=== PATIENT | male | born 1955 | race Caucasian/White ===

== ENCOUNTER 2021-02-10 13:32 | Outpatient (CLI) | payer MEDICARE, SELFPAY ==
--- NOTE | ~2021-02-10 | US_ITS ---
EXAMINATION: US carotid duplex BI DATE: 02/10/2021 14:08 INDICATION: Skin paresthesias TECHNIQUE: Grayscale, color Doppler, and pulsed Doppler images of the cervical carotid arteries were obtained. The degree of vessel stenosis is placed in one of the following categories: normal, <50%, 5 0-69%, >=70% but less than near-occlusion, near-occlusion, or total occlusion. Note that percent sten osis relative to normal distal artery lumen diameter is indirectly measured from velocity measurement s as described by Gennaro, et al. Radiology 2003; 229:340-346. Notes: Normal: Peak systolic velocity <125 centimeters/sec and no plaque <50%. Peak systolic velocity <125 ( EDV <40; ICA/CCA PSV ratio <2.0; used these factors only a tandem lesions or low cardiac output or co ntralateral disease) 50-69 %: PSV 125-230 (EDV 40-100; ratio 2-4) >= 70% but less than near occlusion: PSV greater than 230 (EDV > 100; ratio> 4.0) Near Occlusion: PSV that is variable; markedly narrowed lumen Occlusion: Absent flow on color/spectral Doppler and no lumen on arriola scale. COMPARISON: None. FINDINGS: RIGHT: The right common carotid artery (CCA) peak systolic velocity (PSV) is 76 cm/s. The right internal car otid artery (ICA) PSV is 48 cm/s. The right ICA end-diastolic velocity (EDV) is 22 cm/s. The right IC A/CCA PSV ratio is 0.8. The external carotid artery (ECA) PSV is 67 cm/s. There is antegrade flow in the right vertebral artery. LEFT: The left CCA PSV is 76 cm/s. The left ICA PSV is 63 cm/s. The left ICA EDV is 33 cm/s. The left ICA/C CA PSV ratio is 0.8. The ECA PSV is 54 cm/s. There is antegrade flow in the left vertebral artery. IMPRESSION: 1. Less than 50% stenosis in the right internal carotid artery by sonographic criteria. 2. Less than 50% stenosis in the left internal carotid artery by sonographic criteria. Reviewed, dictated and finalized at location B. IMPRESSION: 1. Less than 50% stenosis in the right internal carotid artery by sonographic c salina. 2. Less than 50% stenosis in the left internal carotid artery by sonographic ronn araujo.
--- NOTE | ~2021-02-10 | XR_ITS ---
EXAMINATION:XR cervical spine 4-5V DATE: 02/10/2021 14:14 INDICATION: Paresthesias at the right side of the face and neck and at the left arm TECHNIQUE: AP, lateral, lateral swimmers and odontoid views of the cervical spine are provided. COMPARISON: None FINDINGS: Odontoid is intact. Normal atlantoaxial interval. Straightening of the normal cervical lordosis. Candida tebral body heights are normal. Mild disc height loss at C5-C6 and C6-C7. Multilevel lower cervical p redominant moderate bilateral uncovertebral osteoarthritis. Additional multilevel mild to moderate bi lateral cervical facet osteoarthritis. Prevertebral soft tissues are normal. Visualized apices of the lungs are clear. IMPRESSION: 1. Mild to moderate cervical spondylosis. Reviewed, dictated and finalized at location A.
== END 2021-02-10 13:33 | disposition home or self-care (01) ==
PROVIDERS: PCP Family Medicine; Visit Provider Family Medicine
DX: R20.2 Paresthesia of skin (principal); M47.892 Other spondylosis, cervical region
CPT/HCPCS: 72050; 93880

== ENCOUNTER 2021-05-18 01:56 | Day surgery (SDC) | payer MEDICARE, SELFPAY ==
[2021-05-06 13:37] VITALS: BMI 31.4
[2021-05-18 07:00] VITALS: BP 127/94; PULSE 64; RESP 20; TEMP 36.5; O2SAT 97
--- NOTE | 2021-05-18 07:13 | WPDANESEPPF ---
Anes - Initial Pre Proc Eval Procedure: Operation Date: 05/18/21 08:00 Proposed Procedures p Screening Colonoscopy - Curry Fuentes MD Date/Time: 05/18/21 07:13 Surgeon: Curry Fuentes MD Pre Op Diagnosis: hx of colon polyps Patient Data Age: 66 Gender: M Height: 1.8 m Weight: 98.8 kg Last Vital Signs Temp 36.5 C 05/18/21 07:00 Pulse 64 05/18/21 07:00 Resp 20 05/18/21 07:00 BP 127/94 H 05/18/21 07:00 Pulse Ox 97 05/18/21 07:00 Allergies Allergy/AdvReac Type Severity Reaction Status Date / Time No Known Allergies Allergy Verified 05/18/21 06:58 Home Medications Medication Instructions Recorded Confirmed Type multivitamin,aj-otrr-vkvgpvev 1 tablet PO DAILY 09/02/19 05/06/21 History naproxen 500 mg tablet 500 mg PO BID PRN 02/25/20 05/06/21 History sildenafil (pulm.hypertension) 20 See Rx Instructions PO DAILY PRN 06/24/20 05/06/21 Rx mg tablet #90 tablet levothyroxine 150 mcg tablet 150 mcg PO DAILY #90 tablet 11/08/20 05/06/21 Rx lisinopril 10 mg tablet 10 mg PO DAILY #90 tablet 11/08/20 05/06/21 Rx simvastatin 40 mg tablet 40 mg PO DAILY #90 tablet 11/08/20 05/06/21 Rx cyanocobalamin (vitamin B-12) 500 mcg PO DAILY 05/06/21 05/06/21 History [Vitamin B-12] loratadine 10 mg PO DAILY 05/06/21 05/06/21 History Patient hx anesthesia problems: none Family hx anesthesia problems: none PMFSH Past Medical History Medical History (Updated 01/26/21 @ 08:42 by Andrés Petit MD) Abnormal fasting glucose BMI 31.0-31.9,adult Chronic low back pain with left-sided sciatica Dupuytren's contracture of both hands Facial paresthesia Trigger finger of right hand Family History Family History (System 10/03/19 @ 10:43 by Meeta Coon) Mother Carcinoma of colon Patient's mother is , Onset Age: 84 Father Patient's father is , Onset Age: 93 Family history of pancreatic cancer Other Diabetes mellitus Family history of allergic disorder Social History Social History Smoking packs per day: 2 Smoking cigarettes per day: 40.0 Years smoked: 20 Smoking pack-years: 40.00 Smoking status: Former smoker Tobacco type: cigarettes Alcohol intake: current Drinks per week: 18 Alcohol use details: BEER/WINE Substance use: never Substance use type: does not use Living arrangements: with family Spiritual care concerns: No Anes - Eval Final PreProcedure Day of Procedure 05/18/21 07:13 Patient weight: obese Heart: regular rate and rhythm Lungs: clear to auscultation and normal air movement Airway: Mallampati scale class II Neurological: alert and oriented Last oral intake: >/= 8 hours ASA classification: III Emergent: no Anesthetic plan: proceed Anesthesia type and monitoring: general GIVS Informed Consent: The patient's anesthetic plan and its attendant risks and benefits were discussed with the patient/family/POA. Questions were solicited and answers provided to the satisfaction of the patient/family/POA.
[2021-05-18] MEDS: LACTATED RINGERS 1,000 ML 150 ML IV CONT (07:23)
--- NOTE | 2021-05-18 07:25 | WPDGICN ---
Assessment and Plan Assessment and plan (1) Family history of colon cancer in mother: Code(s): Z80.0 - Family history of malignant neoplasm of digestive organs Status: Acute Assessment and Plan: Patient has a family history of colon cancer in his mother. For this reason colonoscopy will be performed at this time and should be considered at 5 year intervals in the future. GI Consult Note Consult date/time: 05/18/21 07:25 HPI: Alan Kline is a 66 year old male Presents for colonoscopy. Patient prep family history is significant that his mother had colon cancer. Patient states that his current weight appetite bowel movements are normal. He denies abdominal pain. He has had no bleeding. Last colonoscopy 2010 was unremarkable. Review of Systems Review of Systems: All systems reviewed & are unremarkable except as noted in HPI and below PMFSH Past Medical History Medical History (Updated 05/18/21 @ 07:27 by Curry Fuentes MD) Abnormal fasting glucose BMI 31.0-31.9,adult Chronic low back pain with left-sided sciatica Dupuytren's contracture of both hands Facial paresthesia Trigger finger of right hand Family History Family History (System 10/03/19 @ 10:43 by Meeta Coon) Mother Carcinoma of colon Patient's mother is , Onset Age: 84 Father Patient's father is , Onset Age: 93 Family history of pancreatic cancer Other Diabetes mellitus Family history of allergic disorder Social History Social History Smoking packs per day: 2 Smoking cigarettes per day: 40.0 Years smoked: 20 Smoking pack-years: 40.00 Smoking status: Former smoker Tobacco type: cigarettes Alcohol intake: current Drinks per week: 18 Alcohol use details: BEER/WINE Substance use: never Substance use type: does not use Living arrangements: with family Spiritual care concerns: No Meds Home Medications and Allergies Home Medications Medication Instructions Recorded Confirmed Type multivitamin,ym-lfyo-vawmltzl 1 tablet PO DAILY 09/02/19 05/06/21 History naproxen 500 mg tablet 500 mg PO BID PRN 02/25/20 05/06/21 History sildenafil (pulm.hypertension) 20 See Rx Instructions PO DAILY PRN 06/24/20 05/06/21 Rx mg tablet #90 tablet levothyroxine 150 mcg tablet 150 mcg PO DAILY #90 tablet 11/08/20 05/06/21 Rx lisinopril 10 mg tablet 10 mg PO DAILY #90 tablet 11/08/20 05/06/21 Rx simvastatin 40 mg tablet 40 mg PO DAILY #90 tablet 11/08/20 05/06/21 Rx cyanocobalamin (vitamin B-12) 500 mcg PO DAILY 05/06/21 05/06/21 History [Vitamin B-12] loratadine 10 mg PO DAILY 05/06/21 05/06/21 History Allergies Allergy/AdvReac Type Severity Reaction Status Date / Time No Known Allergies Allergy Verified 05/18/21 06:58 Vital Signs Vital Signs - 24 hr 05/18/21 07:00 Temperature 97.7 F Pulse Rate 64 Respiratory Rate 20 Blood Pressure 127/94 H Pulse Oximetry 97 Exam Narrative: Physical exam reveals patient be alert. Vital signs stable. HEENT exam is unremarkable. Patient is anicteric. Lungs are clear to auscultation and percussion. Heart is without murmur or extra sounds. Abdominal exam bowel sounds are present soft nontender with no organomegaly. Digital external rectal exam is normal.
[2021-05-18] MEDS: SIMETHICONE ORAL SUSPENSION 20 MG/0.3 ML 30 ML BOTTLE 0.6 ML IRRIGATION (08:13)
[2021-05-18 08:24] VITALS: BP 101/79; PULSE 73; RESP 31; O2SAT 93
[2021-05-18 08:34] VITALS: BP 120/85; PULSE 71; RESP 17; O2SAT 96
[2021-05-18 08:44] VITALS: BP 117/85; PULSE 68; RESP 17; O2SAT 98
== END 2021-05-18 08:45 | disposition home or self-care (01) ==
PROVIDERS: PCP Family Medicine; Visit Provider Internal Medicine Gastroenterology
PROC: 0DJD8ZZ Inspection of Lower Intestinal Tract, Via Natural or Artificial Opening Endoscopic (ICD-10-PCS; CPT 45378; principal; 2021-05-18 08:00)
DX: Z12.11 Encounter for screening for malignant neoplasm of colon (principal); D12.5 Benign neoplasm of sigmoid colon; K57.30 Diverticulosis of large intestine without perforation or abscess without bleeding; K64.8 Other hemorrhoids; Z80.0 Family history of malignant neoplasm of digestive organs; Z87.891 Personal history of nicotine dependence; E66.9 Obesity, unspecified; Z68.30 Body mass index [BMI] 30.0-30.9, adult
CPT/HCPCS: 45385; 88305; J2704; J7120

== ENCOUNTER → 2022-07-20 12:10 | Outpatient (CLI) | payer MEDICARE, SELFPAY ==
--- NOTE | ~2022-07-20 | XR_ITS ---
EXAMINATION: XR hip BI 2V w AP pelvis DATE: 07/20/2022 12:26 INDICATION: Hip pain TECHNIQUE: AP view the pelvis and two views of each hip were obtained. COMPARISON: None. FINDINGS: Bone alignment is normal. There is mild osteoarthritis of the hips. There is no fracture. T he soft tissues are unremarkable. There is severe spondylosis of the visualized lumbar spine. IMPRESSION: 1. Mild osteoarthritis of the hips. Reviewed, dictated and finalized at location B.
== END ==
PROVIDERS: PCP Family Medicine; Visit Provider Family Medicine
DX: M16.0 Bilateral primary osteoarthritis of hip (principal); M47.816 Spondylosis without myelopathy or radiculopathy, lumbar region
CPT/HCPCS: 73521

== ENCOUNTER 2023-03-14 01:36 | Day surgery (SDC) | payer MEDICARE, SELFPAY ==
--- NOTE | 2023-03-07 08:41 | PC.NURSE ---
Report to the Outpatient Waiting Room, entrance under the green pavilion located off [facility], at time __0600 on date ___03/14/23____. Planned Procedure Time: ___729 . Time changes happen often and if your time is changed the preop area will call you the afternoon before. - You and your visitor will be asked to self-screen and do not enter if you have any COVID symptoms. - A mask is optional within the hospital at this time. Patients may have clear liquids (water, carbonated beverages, clear teas, apple juice) until 3 hours prior to surgery (0430 AM) with a maximum of 20 ounces. - No food from midnight until time of surgery - Infants may have breast milk until 4 hours before surgery, formula 6 hours prior to surgery. - Children will be allowed to drink immediately following surgery. If applicable, please bring a bottle or sippy cup to assist with drinking. Juice, water, soda, and popsicles are readily available. For infants on formula, please bring formula the day of surgery. Pacifiers are allowed. Take the following medications with a SIP of water the morning of surgery: LEVOTHYROXINE DO NOT STOP ANY OF YOUR OTHER PRESCRIPTION MEDICATIONS PRIOR TO SURGERY ?EXCEPT THE FOLLOWING Medications to discontinue per ANESTHESIA ____MULTIVITAMIN 3 DAYS PRIOR TO SURGERY Date to take last dose 03/10/23 Please no make-up, nail uzbek, hairspray, perfume, deodorant, or body powder the day of surgery. No jewelry (including any body piercings) or valuables the day of surgery, leave them at home. Please take a shower or bath the night before, or the morning of, surgery with an antibacterial soap. Wear comfortable, loose fitting clothing. Children are encouraged to wear pajamas. - Jewelry must be removed prior to entering the operating room. Rings and piercings that are not removed may be cut off. - The hospital will not accept responsibility for valuables. - Please leave all valuables, including medications, at home the day of surgery. If you are going home after surgery, a licensed stage driver must drive you home. - NO public transportation without another adult if you receive anesthesia. - We recommend that an adult stay with you for 24 hours following discharge. - We also recommend that you do not drive, make important decision, drink alcoholic beverages, or take any drugs that were not prescribed by your health care provider for at least 24 hours after your discharge time. For Pediatric surgeries, we recommend two adults accompany the child home. Follow any additional instructions given to you from your surgeon. If you or anyone in your household have experienced Covid symptoms in the past week, please notify your surgeon or the nurse liaison at the phone number below for possible testing. Telephone instructions given to ____PATIENT and asked if any additional questions and then verbalized understanding. Patient advised to call surgeon office or pre surgery nurse liaison [phone] if any additional questions.
[2023-03-14] MEDS: LACTATED RINGERS 1,000 ML 30 ML IV CONT (06:30)
[2023-03-14 06:32] VITALS: BP 143/78; PULSE 61; RESP 16; TEMP 35.7; O2SAT 92
--- NOTE | 2023-03-14 06:39 | WPDANESEPPF ---
Anes - Initial Pre Proc Eval Procedure: Operation Date: 03/14/23 07:30 Proposed Procedures p Right Open Carpal Tunnel Release, Right Ulnar Neuroplasty at Elbow - Jose Bhatia MD Date/Time: 03/14/23 06:39 Surgeon: Jose Bhatia MD Pre Op Diagnosis: right carpal tunne syndrome,ulnar neuro at elbow Patient Data Age: 67 Gender: M Height: 1.8 m Weight: 98.2 kg Last Vital Signs Temp 35.7 C L 03/14/23 06:32 Pulse 61 03/14/23 06:32 Resp 16 03/14/23 06:32 BP 143/78 H 03/14/23 06:32 Pulse Ox 92 03/14/23 06:32 O2 Del Method Room Air 03/14/23 06:32 Allergies Allergy/AdvReac Type Severity Reaction Status Date / Time No Known Allergies Allergy Verified 03/14/23 06:13 Home Medications Medication Instructions Recorded Confirmed Type multivitamin,wa-qqfn-shnfrkfk 1 tablet PO DAILY 09/02/19 03/14/23 History (Complete Multivitamin tablet) cyanocobalamin (vitamin B-12) 500 500 mcg PO DAILY 05/06/21 03/14/23 History mcg tablet (Vitamin B-12) famotidine 20 mg tablet 20 mg PO BID PRN Acid Reflux 01/05/22 03/07/23 History celecoxib 200 mg capsule (Celebrex) 200 mg PO BID PRN pain #60 caps 01/25/23 03/14/23 Rx loratadine 10 mg tablet 10 mg PO DAILY PRN allergic 01/25/23 03/07/23 History symptoms levothyroxine 150 mcg tablet 150 mcg PO DAILY #90 tabs 01/30/23 03/14/23 Rx lisinopril 10 mg tablet 10 mg PO DAILY #90 tabs 01/30/23 03/14/23 Rx simvastatin 40 mg tablet 40 mg PO DAILY #90 tabs 01/30/23 03/14/23 Rx sildenafil (pulm.hypertension) 20 See Rx Instructions PO DAILY PRN 03/07/23 03/07/23 History mg tablet Sexual Activity Patient hx anesthesia problems: none Family hx anesthesia problems: none Results Review: All pre-operative results and documents have been reviewed as part of the pre-operative evaluation. [facility] Past Medical History Medical History Abnormal fasting glucose Fasting glucose 101 with hemoglobin A1c 5.4 on 07/12/2022. Acute bronchitis (08/16/22) COVID negative, influenza a and B negative Acute non-recurrent maxillary sinusitis BMI 29.0-29.9,adult BMI 30.0-30.9,adult BMI 31.0-31.9,adult Carpal tunnel syndrome, bilateral Bilateral carpal tunnel syndrome on EMG and nerve conduction study 11/13/2022 moderate on the right and mild on the left. Chronic low back pain with left-sided sciatica Chronic thoracic back pain Dupuytren's contracture of both hands Encounter for prostate cancer screening Facial paresthesia Gastro-esophageal reflux disease without esophagitis Hip pain, bilateral X-ray of the hips and pelvis on 07/20/2022 reveals mild osteoarthritis of the hips with severe lumbar spondylosis. Impacted cerumen of both ears Obesity (BMI 30.0-34.9) Overweight (BMI 25.0-29.9) Polyp of colon (05/18/21) 2 benign-appearing polyps in the sigmoid colon with Dr. Fuentes on 05/18/2021 with recheck in 5 years. Tubular adenoma Right otitis media with effusion Trigger finger of right hand Ulnar neuropathy at elbow of right upper extremity Cubital tunnel syndrome on EMG and nerve conduction study on the right on 11/13/2022. Family History Family History Mother Carcinoma of colon Patient's mother is , Onset Age: 84 Father Patient's father is , Onset Age: 93 Family history of pancreatic cancer Other Diabetes mellitus Family history of allergic disorder Social History Social History Smoking packs per day: 2 Smoking cigarettes per day: 40.0 Years smoked: 20 Smoking pack-years: 40.00 Smoking status: Former smoker Tobacco type: cigarettes Second hand tobacco smoke exposure: No Smoking end date: 10/15/83 Alcohol intake: current Drinks per week: 18 Alcohol use details: BEER/WINE Substance use: never Substance use type: does not use Lack of Transportation: No
--- NOTE | 2023-03-14 07:14 | WPDHPUPDATE1 ---
History and Physical Update Update Date/Time: 03/14/23 07:14 History and Physical has been reviewed, including an updated exam of the patient. There are NO changes in the patient's condition. Risks, benefits, and alternatives have been discussed and questions answered. Patient agrees to proceed with procedure.
[2023-03-14] MEDS: LIDO 1%/EPINEPHRINE 1:100,000 50 ML VIAL 8 ML INFILTRATE (07:26)
[2023-03-14] MEDS: BACITRACIN OINTMENT 15 GM TUBE 1 APPLIC TOPICAL (07:52)
[2023-03-14 08:45] VITALS: BP 102/56; PULSE 58; RESP 16; O2SAT 95
--- NOTE | 2023-03-14 09:14 | W.PM.PROC2 ---
Procedure Note - Detailed Date of Procedure 03/14/23 Pre-op Diagnosis right carpal tunne syndrome,ulnar neuro at elbow Post-op Diagnosis Same Procedure Performed Right carpal tunnel release and right ulnar neuroplasty with anterior subcutaneous transposition Surgeon Jose Bhatia MD Anesthesia MAC Description of Procedure The 2 sites were marked on the patient while waiting in the holding area with his consent. Patient was transferred to the operating room where he was placed supine on the operating table. A time-out was held and confirmed. He was given IV sedation. The extremity was prepped and draped in usual fashion. A pneumatic tourniquet was applied to his arm. The surgical sites were marked and locally infiltrated with 1% lidocaine with epinephrine. Surgery was begun at the right palm where the incision was made as marked after inflating the tourniquet to 250 mmHg. Blunt dissection was performed through the subcutaneous tissue to the palmar aponeurosis. This and the transverse retinaculum were incised with a 15. Blade. Under 3 point retraction the ligament was divided distally and then proximally to completely release it. No unusual anatomy was noted and the wound was closed with interrupted 4-0 nylon suture. The elbow was flexed and supported on folded towels. The incision was made over the course of the ulnar nerve. Skin flaps were elevated sufficiently to identify the nerve proximally and this was followed distally. The nerve was subluxated over the medial epicondyle. The Naik ligament appeared to be attenuated but still holding the nerve in the court ordered position with the elbow in flexion. This was lysed. The nerve floated freely up onto the medial epicondyle. The decision was made to transpose it. The nerve was mobilized sufficiently to transpose without kinking. The skin flap was elevated. A fascial flap was designed to lie over the nerve keeping it positioned in its new location. The flap repairs were done with 3-0 Monocryl suture. The skin was closed with interrupted intradermal 3-0 Monocryl sutures at cross deleon mejía. The skin was then closed with a running intradermal 3-0 Monocryl suture.. Both wounds were closed in usual fashion with Xeroform gauze 4 x 4 gauze Kerlix roll and Valentín wrap. The tourniquet was released at approximately 53 minutes and the patient was discharged from the operating room stable condition. Is being discharged home with a prescription for hydrocodone 5/325 6. Estimated Blood Loss 5 Tourniquet Time 53 Drains No Packing No Pathology None sent Complications No immediate complications Condition Stable Disposition Same day
[2023-03-14 09:15] VITALS: BP 110/70; PULSE 53; RESP 20
[2023-03-14 09:35] VITALS: BP 122/80; PULSE 51; RESP 20
== END 2023-03-14 09:39 | disposition home or self-care (01) ==
PROVIDERS: PCP Family Medicine; Visit Provider Plastic Surgery
PROC: (CPT 64721; principal; 2023-03-14 07:30)
DX: G56.01 Carpal tunnel syndrome, right upper limb (principal); G56.21 Lesion of ulnar nerve, right upper limb; K21.9 Gastro-esophageal reflux disease without esophagitis; Z87.891 Personal history of nicotine dependence; E66.9 Obesity, unspecified; Z68.30 Body mass index [BMI] 30.0-30.9, adult
CPT/HCPCS: 64721; 64718; A9270; J2250; J2405; J2704; J3010; J7120

== ENCOUNTER 2025-02-10 09:25 | Emergency (ER) | payer MEDICARE, SELFPAY ==
--- NOTE | ~2025-02-10 | XR_ITS ---
[id number] Ordering provider: Nate Keith APRN History: . cervical radiculopathy/right side/no trauma/cancer history . Comparison: None. FINDINGS: VERTEBRAL BODIES: Normal height and alignment. No visible fracture or subluxation. The dens is intact . Postoperative changes at the level of C4, C5, C6 and C7. DISK SPACES: Narrowing of the disc C4-C5, C5-C6 and C6-C7 with disc spacers. Multilevel facet joint d isease. PARASPINOUS SOFT TISSUES: No prevertebral soft tissue swelling. IMPRESSION: No acute osseous abnormality cervical spine. Postoperative changes. Reviewed, dictated and finalized at location A.
--- NOTE | 2025-02-10 09:27 | ED_ITS ---
HPI - Neck Pain/Injury General Chief Complaint: Neck Pain/Injury Stated Complaint: Neck Pain Time Seen by Provider: 02/10/25 09:27 Source: patient Mode of arrival: ambulatory Limitations: no limitations History of Present Illness HPI Narrative: Alan is a 69-year-old male patient presenting to the clinic today with complaints of neck pain x3 days. Reports no known injury. History of cervical spondylosis. States he had had a fusion was some could our bone and the cervical spine as well. Feels a clicking in his neck with pain radiating into the right shoulder. Denies any pain going further down the arm. Denies any chest pain or shortness of breath. Pain does not change with movement of the arm. Does have mild discomfort with turning his head side to side against resistance. Feels as though he may have a pinched nerve. Related Data Home Medications ?Medication ?Instructions ?Recorded ?Confirmed ?Last Taken ?Type multivitamin,du-[id number] 1 tablet PO DAILY 09/02/19 02/10/25 03/09/23 History (Complete Multivitamin tablet) cyanocobalamin (vitamin B-12) 500 500 mcg PO DAILY 05/06/21 02/10/25 03/09/23 History mcg tablet (Vitamin B-12) loratadine 10 mg tablet 10 mg PO DAILY PRN allergic 01/25/23 02/10/25 Unknown History symptoms leuprolide acetate (6 month) 45 mg 45 mg subcut [id number] 10/02/24 02/10/25 Unknown History (6 month) subcutaneous syringe (Eligard) Allergies Allergy/AdvReac Type Severity Reaction Status Date / Time No Known Allergies Allergy Verified 02/10/25 09:36 Review of Systems Review of Systems: Pertinent positives per HPI. Patient denies any fever, chills, rash, headache, visual changes, dizziness, cough, runny nose, sore throat, shortness of breath, chest pain, palpitations, nausea, vomiting, diarrhea, constipation, abdominal pain, or any urinary issues. [facility] Past Medical History Medical History At low risk for fall Facial paresthesia Ulnar neuropathy at elbow of right upper extremity Treated surgically. Cubital tunnel syndrome on EMG and nerve conduction study on the right on 11/13/2022. Carpal tunnel syndrome, bilateral Treated surgically. Bilateral carpal tunnel syndrome on EMG and nerve conduction study 11/13/2022 moderate on the right and mild on the left. Prostate cancer (~08/02/23) prostate biopsy with 07/29 biopsies positive on 11/01/2023. MRI and PET scan with activity and 2 nodules and in the seminal vesicle Elevated PSA, less than 10 ng/ml (08/02/23) PSA elevated at 5.98 On 08/02/2023, increased from 3.45. PSA 5.6 with 16% free PSA on 09/10/2023. Chronic thoracic back pain BMI 30.0-30.9,adult Encounter for prostate cancer screening Acute bronchitis (08/16/22) COVID negative, influenza a and B negative Right otitis media with effusion Acute non-recurrent maxillary sinusitis BMI 29.0-29.9,adult Overweight (BMI 25.0-29.9) Hip pain, bilateral X-ray of the hips and pelvis on 07/20/2022 reveals mild osteoarthritis of the hips with severe lumbar spondylosis. Obesity (BMI 30.0-34.9) Gastro-esophageal reflux disease without esophagitis Impacted cerumen of both ears Polyp of colon (05/18/21) 2 benign-appearing polyps in the sigmoid colon with Dr. Fuentes on 05/18/2021 with recheck in 5 years. Tubular adenoma BMI 31.0-31.9,adult Chronic low back pain with left-sided sciatica Abnormal fasting glucose Fasting glucose 101 with hemoglobin A1c 5.4 on 07/12/2022. fasting glucose 89 with hemoglobin A1c 5.4 on 08/02/2023. Glucose 94 with hemoglobin A1c 5.5 on 09/24/2024. Dupuytren's contracture of both hands Trigger finger of right hand Family History Family History Mother Carcinoma of colon Patient's mother is , Onset Age: 84 Father Patient's father is , Onset Age: 93 Family history of pancreatic cancer Other Diabetes mellitus Family history of allergic disorder Social History Social History Smoking packs per day: 2 Smoking cigarettes per day: 40.0 Years smoked: 20 Smoking pack-years: 40.00 Smoking status: Former smoker Tobacco type: cigarettes Second hand tobacco smoke exposure: No Smoking end date: 10/15/83 Alcohol intake: current Drinks per week: 18 Alcohol use details: BEER/WINE Substance use: never Substance use type: does not use Lack of Transportation: No Lack of Food: Never True Current Housing: I Have Housing Concerned About Future Housing: No Difficulty Paying Gas/Electric Bills: No Difficulty Paying for Meds: No Currently Unemployed: No Education: High School Diploma/GED Difficulty w/ Childcare or Family Care: No Living arrangements: with family Spiritual care concerns: No Comments At the time of my signature, I reviewed and agree with the nursing past medical, surgical, social, and family history. There is no relevant family history pertinent to the patient complaint. Exam Narrative: General: Well-developed, well nourished, in no apparent distress Head: Normocephalic, atraumatic. Cardio: Regular rate and rhythm, s1 and s2 normal, no murmur appreciated. Resp: Clear to auscultation bilaterally, no rhonchi, rales, wheezing or rubs. Musculoskeletal: No deformity, non-tender to palpation, mild discomfort with turning head side to side against resistance, grossly normal range of motion, muscle strength strong and equal in BLE. SLT negative, patellar reflexes 2/4 bilaterally, negative foot drop, normal gait and station Course Course Emergency Course: Portions of this record may have been created with voice recognition software. Level of Care: Express Care Visit Vital Signs Vital signs: Vital Signs Temperature 36.2 C L 02/10/25 09:33 Pulse Rate 75 02/10/25 09:33 Respiratory Rate 18 02/10/25 09:33 Blood Pressure 152/83 H 02/10/25 09:33 Pulse Oximetry 95 02/10/25 09:33 Oxygen Delivery Room Air 02/10/25 09:33 Temperature 36.2 C L 02/10/25 09:33 Pulse Rate 75 02/10/25 09:33 Respiratory Rate 18 02/10/25 09:33 Blood Pressure 152/83 H 02/10/25 09:33 Pulse Oximetry 95 02/10/25 09:33 Oxygen Delivery Room Air 02/10/25 09:33 Vital signs reviewed MDM - Neck Pain/Injury MDM Narrative Medical decision making narrative: At the time of visit patient is resting comfortably on the exam table. Patient appears to be nontoxic. Diagnostics: X-ray of the cervical spine was performed and shows no acute fracture or malalignment. Does show some postoperative changes. Plan: I suspect patient has cervical radiculopathy. Prescription for Medrol Dosepak was sent to the pharmacy. Supportive measures were discussed with the patient and they voiced understanding discharge instructions and agrees to treatment plan. Return precautions reviewed Differential Diagnosis Differential diagnosis: Likely disc disorder of cervical region, whiplash injury to neck, closed subluxation of cervical spine, fracture of cervical spine without lesion of spinal cord, cervical radiculopathy, vertebral artery dissection, torticollis, cervical spondylosis and strain of neck muscle Imaging Data Radiologist's impression: ITS Impressions Cervical Spine X-Ray 02/10/25 10:04 IMPRESSION: No acute osseous abnormality cervical spine. Postoperative changes. Discharge Plan Discharge Clinical Impression: Cervical radiculopathy Patient Disposition: Home Condition: Stable Instructions: Antibiotic Form, Cervical Radiculopathy (ED), Neck Pain (ED) Additional Instructions: X-rays negative for any fracture or any acute malalignment. Does show some postoperative change Take Medrol Dosepak as prescribed May use heat or ice to the affected area Consider massage or chiropractor adjustment if this was discussed with provider May use blue emu, lidocaine patches, or asper cream to affected area- do not apply heat or ice directly over cream- can cause burn. Complete appropriate neck stretching exercises. Follow up with your PCP in 3-5 days if symptom persist. Patient Language: Danish Prescriptions: New methylprednisolone [Medrol (Sony)] 4 mg tablets,dose pack See Rx Instructions PO .COMPLEX Qty: 21 0RF Rx Instructions: orally per package directions No Action loratadine 10 mg tablet 10 mg PO DAILY PRN (Reason: allergic symptoms) sildenafil (pulm.hypertension) 20 mg tablet See Rx Instructions PO DAILY PRN (Reason: Sexual Activity) Qty: 90 5RF Rx Instructions: Take up to 5 tablets once daily 1 hour before sexual activity PO PRN; The patient will pay estrada levothyroxine 125 mcg tablet 125 mcg PO DAILY Qty: 90 3RF Eligard (6 month) 45 mg syringe 45 mg subcut [id number] cyanocobalamin (vitamin B-12) [Vitamin B-12] 500 mcg Tablet 500 mcg PO DAILY Complete Multivitamin Tablet 1 tablet PO DAILY simvastatin 40 mg tablet 40 mg PO DAILY Qty: 90 3RF celecoxib [Celebrex] 200 mg capsule 200 mg PO BID PRN (Reason: pain) Qty: 60 11RF levothyroxine [Levo-T] 137 mcg tablet 137 mcg PO . q.a.m. Qty: 90 3RF irbesartan 150 mg tablet 150 mg PO DAILY Qty: 90 3RF Rx Instructions: switch from lisinopril Follow-up/Referrals: Andrés Petit MD [Primary Care Provider] - Time of Disposition: 10:11 Quality NIHSS Nursing Documentation ED NIHSS nursing documentation: reviewed/agree
[2025-02-10 09:33] VITALS: BP 152/83; PULSE 75; RESP 18; TEMP 36.2; O2SAT 95
--- OUTSIDE RECORDS SUMMARY | 2025-02-10 10:15 | XMS_ITS | Referral Summary ---
Author Organization [facility] Address [address] [place] [id number] Care Team Providers Care Making Department Preparer Name Role Phone Andrés Petit MD Primary Care Provider [phone] Allergies No known active allergies Medications cyclobenzaprine (FLEXERIL) 10 mg tablet Take 1 tablet (10 mg total) by mouth 3 (three) times a day as needed for muscle spasms 20 tablet 08/18/2021 Active naproxen (NAPROSYN) 500 mg tablet Take 1 tablet (500 mg total) by mouth 2 (two) times a day as needed for pain Take with food. 20 tablet 08/18/2021 Active Active Problems No known active problems Social History Tobacco Use Types Packs/Day Years Used Date Smoking Tobacco: Never Assessed Sex and Gender Information Value Date Recorded Sex Assigned at Not on file Legal Sex Male 1:49 PM TRACK MAN Gender Identity Not on file Sexual Orientation Not on file Last Filed Vital Signs Vital Sign Reading Time Taken Comments Blood Pressure 148/98 08/18/2021 2:30 PM CDT Pulse 55 08/18/2021 2:30 PM CDT Temperature 36.4 C (97.5 F) 08/18/2021 10:43 AM CDT Respiratory Rate 11 08/18/2021 2:30 PM CDT Oxygen Saturation 97% 08/18/2021 2:30 PM CDT Inhaled Oxygen Concentration - - Weight 97.5 kg (215 lb) 10/17/2023 9:16 AM TRACK MAN Height 180.3 cm (5' 11 ) 10/17/2023 9:16 AM TRACK MAN Body Mass Index 29.99 10/17/2023 9:16 AM TRACK MAN Plan of Treatment Not on file Insurance [employer]IC[facility] MEDICARE [facility] MEDICARE [facility] Care Teams Making Department Preparer Relationship Specialty Start Date End Date Andrés Petit MD [address] [address] PCP - General 07/31/19
--- OUTSIDE RECORDS SUMMARY | 2025-02-10 10:15 | XMS_ITS | Clinical Summary ---
Author Organization [facility] Address [address] [place] [id number] Care Team Providers Care Psychotherapist Counselor Name Role Phone Andrés Petit MD Primary Care Provider [phone] Allergies No known active allergies Medications cyclobenzaprine [...] Active Active Problems No known active problems Surgical History Surgery Date Site/Laterality Comments LUMBAR FUSION 10/15/2009 - 10/14/2010 TENDON REPAIR 10/15/2019 - 10/14/2020 Left Wrist UMBILICAL HERNIA REPAIR Medical History Medical History Date Comments Hypertension Thyroid disease Hypercholesteremia Social History Tobacco Use Types Packs/Day Years Used Date Smoking Tobacco: Never Assessed Sex and Gender Information Value Date Recorded Sex Assigned at Not on file Legal Sex Male 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 CURATIVE SPECIALIST Gender Identity Not on file Sexual Orientation Not on file Obstetrics History Last Filed Vital Signs Vital Sign Reading Time Taken Comments Blood Pressure 148/98 08/18/2021 2:30 PM CDT Pulse 55 08/18/2021 2:30 PM CDT Temperature 36.4 C (97.5 F) 08/18/2021 10:43 AM CDT Respiratory Rate 11 08/18/2021 2:30 PM CDT Oxygen Saturation 97% 08/18/2021 2:30 PM CDT Inhaled Oxygen Concentration - - Weight 97.5 kg (215 lb) 10/17/2023 9:16 AM TITLE CURATIVE SPECIALIST Height 180.3 cm (5' 11 ) 10/17/2023 9:16 AM TITLE CURATIVE SPECIALIST Body Mass Index 29.99 10/17/2023 9:16 AM TITLE CURATIVE SPECIALIST Plan of Treatment Health Maintenance Due Date Last Done Comments Colon Cancer Screening-Colonoscopy 1955 Depression Screening 1955 Fall Risk Assessment 1955 Hepatitis C Screening 1955 Prostate Cancer Screening-PSA 1955 DTaP/Tdap/Td Vaccine (1 - Tdap) 1966 Hepatitis B Screening 1973 Pneumococcal vaccine 65+ (1 of 1 - PCV) 2005 Zoster Vaccine (1 of 2) 2005 Abdominal Aortic Aneurysm (AAA) Screen 2020 Well Visit 65+ 2020 Covid-19 Vaccine ( season) 2024, 03/21/2022 Influenza Vaccine (#1) 2024 08/08/2022 [facility] [id number] MED[facility] Address: [address] [address] [place] [address] [facility] MEDICARE [facility] [place] [address] [facility] Care Teams Psychotherapist Counselor Relationship Specialty Start Date End Date Andrés Petit MD [address] [address] PCP - General 07/31/19
--- OUTSIDE RECORDS SUMMARY | 2025-02-10 10:15 | XMS_ITS | Clinical Summary ---
Author Organization [facility] Address [address] [place] [address] Phone Care Team Providers Care Bench Worker Hollow Handle Name Role Phone Andrés Petit MD Primary Care Provider Allergies No known active allergies Medications levothyroxine 150 mcg tablet Take 150 mcg by mouth daily. Active lisinopriL (PRINIVIL) 10 mg tablet Take 10 mg by mouth daily. Active simvastatin (ZOCOR) 40 mg tablet Take 40 mg by mouth daily with supper. Active cetirizine (ZyrTEC) 10 mg tablet Take 10 mg by mouth daily. Active multivit with minerals/lutein (MULTIVITAMIN 50 PLUS ORAL) Take by mouth daily. Active cyanocobalamin (VITAMIN B-12) 500 mcg tablet Take 500 mcg by mouth daily. Active HYDROcodone-acetam inophen (NORCO) 7.5-325 mg TabletIndications: Cervical radiculopathy Take 1-2 Tablets by mouth every 4 hours as needed for Pain. Max Daily Amount: 12 Tablets 84 Tablet 11/04/2021 6:38 PM REHABILITATION DIRECTOR 2 Active diazePAM (Valium) 5 mg tabletIndications: Cervical radiculopathy Take 1 Tablet (5 mg) by mouth every 6 hours as needed for Spasm. 60 Tablet 11/04/2021 6:38 PM REHABILITATION DIRECTOR 2 Active docusate sodium (Colace) 100 mg capsule Take 1 Capsule (100 mg) by mouth 2 times daily as needed for Constipation . 30 Capsule 11/04/2021 6:38 PM REHABILITATION DIRECTOR 2 Active Active Problems Problem Noted Date Diagnosed Date Carpal tunnel syndrome, bilateral 11/13/2022 Cubital tunnel syndrome of both upper extremitie s 11/13/2022 Social History Tobacco Use Types Packs/Day Years Used Date Smoking Tobacco: Unknown Sex and Gender Information Value Date Recorded Sex Assigned at Not on file Legal Sex Male 3:49 AM REHABILITATION DIRECTOR Gender Identity Not on file Sexual Orientation Not on file Last Filed Vital Signs Vital Sign Reading Time Taken Comments Blood Pressure 134/83 11/04/2021 6:45 PM REHABILITATION DIRECTOR Pulse 77 11/04/2021 6:45 PM REHABILITATION DIRECTOR Temperature 36.6 C (97.9 F) 11/04/2021 6:11 PM REHABILITATION DIRECTOR Respiratory Rate 20 11/04/2021 6:45 PM REHABILITATION DIRECTOR Oxygen Saturation 93% 11/04/2021 6:45 PM REHABILITATION DIRECTOR Inhaled Oxygen Concentration - - Weight 105.2 kg (232 lb) 11/04/2021 12:00 PM REHABILITATION DIRECTOR Height 180.3 cm (5' 11 ) 11/04/2021 12:00 PM REHABILITATION DIRECTOR Body Mass Index 32.36 11/04/2021 12:00 PM REHABILITATION DIRECTOR Plan of Treatment Health Maintenance Due Date Last Done Comments DTAP/TDAP/TD VACCINES (1 - Tdap) 1974 COLORECTAL SCREENING 2000 Colorectal Cancer Screening 2000 FIT-DNA Q 3 years 2000 FIT/FOBT Q 1 year 2000 Flex Sig/CT Colonography Q 5 years 2000 PNEUMOCOCCAL VACCINE 50+ YEARS (1 of 1 - PCV) 05/16/20 05 ZOSTER VACCINE (1 of 2) 2005 INFLUENZA VACCINE (#1) 2024 RSV VACCINE (60+ or ) (1 - 1-dose 75+ series) 2030 Medical Devices Implanted Type Area Brand Representative Device Identifier Shelf Expiration Date Model / Serial / Lot Plate Zevo Ac 3lvl Ti 53mm [id number] - [id number] Implanted:Qty : 1 on 11/04/2021 by Kain Frost MD at [facility] N/A: Spine Cervical Anterior MEDONE Change- [employer] [id number] / / Description:Load No: [id number] Sterilized: 10/28/2021 MICKEY REQ#[id number] Pin Holding Zevo Plate [id number] - [id number] Implanted:Qty : 2 on 11/04/2021 by Kain Frost MD at [facility] Plate N/A: Spine Cervical Anterior [employer] SOFAMOR DANEK [id number] / / Description:Load No: [id number] Sterilized: 10/28/2021 Screw Zevo Va Sd 3.5x13mm [id number] - [id number] Implanted:Qty : 8 on 11/04/2021 by Kain Frost MD at [facility] Screw N/A: Spine Cervical Anterior [employer]- SOFAMOR DANEK [id number] / / Description:Load No: [id number] Sterilized: 10/28/2021 Allograft Crnrstn [id number] - [id number] Implanted:Qty : 1 on 11/04/2021 by Kain Frost MD at [facility] N/A: Spine Cervical Anterior [employer]AMOR DANEK 08/10/2024 [id number] / [id number] / [id number] Description: BR REQ#[id number] Allograft Crnrstn [id number] - [id number] Implanted:Qty : 1 on 11/04/2021 by Kain Frost MD at [facility] N/A: Spine Cervical Anterior [employer] 08/10/2024 [id number] / [id number] / [id number] Description: BR REQ#[id number] Allograft Crnrstn [id number] - [id number] Implanted:Qty : 1 on 11/04/2021 by Kain Frost MD at [facility] Tissue N/A: Spine Cervical Anterior [employer] 08/10/2024 [id number] / [id number] / [id number] Description: BR REQ#[id number] Explanted Type Area Brand Representative Device Identifier Shelf Expiration Date Model / Serial / Lot Hemostatic Surgiflo 8ml W/ Thrombin 2994 - Sna Explanted:Qty: 1 on 11/04/2021 by Kain Frost MD at [facility] Hemostatic N/A: Neck [employer] 03/14/2022 [id number] / NA / [id number] Insurance MEDICARE PART A AND B [facility] [id number] RX [employer] RX Member Subscriber Plan / Payer (Ef fective 2021-Present) Name:Alan Kline Relation to Subscriber:Self Name:Alan Kline Payer ID:Not on file Group ID:[id number] Type:RX Medicare Part D Address: [place] Care Teams Bench Worker Hollow Handle Relationship Specialty Start Date End Date Andrés Petit MD [address] [place] [address] [place] [phone] PCP - General Family Practice 11/02/21
--- OUTSIDE RECORDS SUMMARY | 2025-02-10 10:15 | XMS_ITS | Encounter Summary ---
Author Organization [facility] Address 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
--- OUTSIDE RECORDS SUMMARY | 2025-02-10 10:15 | XMS_ITS | Continuity of Care Document ---
Author Organization [facility] Address [address] [place] [address] Phone Care Team Providers Care Economic Research Analyst Name Role Phone Tee Nicholson PA-C Unavailable [...] Encounter OFFICE/OUTPA TIENT VISIT EST [facility], [address] [address], [place], [address], [place] tel:[phone] [facility] Laceration of other specified muscles, fascia and tendons at wrist and hand level, left hand, subsequent encounter 9 Bharat Oliveira. [address], [place], [place], [id number] , [place]. tel: [phone] [facility], [address], [place], [address], [place] tel:[phone] [facility] Laceration of other specified muscles, fascia and tendons at wrist and hand level, left hand, subsequent encounter [address], [place], [place], [id number] , [place]. tel: [phone] Referring Provider: Andrés Caruso, [address] [facility], [place], [address]. tel:[phone] [facility], [address] [place] [address], [place], [address], [place] tel:[phone] [facility] [address] Laceration of other specified muscles, fascia and tendons at wrist and hand level, left hand, subsequent encounterEncoun ter for preprocedural cardiovascular examinationLace ration of other flexor muscle, fascia and tendon at forearm level, left arm, initial encounter [address], [place], [place], [id number] , [place]. tel: [phone] OFFICE/OUTPA TIENT VISIT [facility] Orthopa[facility] Surgery, [address] [place] [address], [place], [address], [place] tel:[phone] [facility] Laceration of other specified muscles, fascia and tendons at wrist and hand level, left hand, subsequent encounter [address], [place], [place], [id number] , [place]. tel: [phone] OFFICE/OUTPA TIENT VISIT [facility] Orthopaedic Surgery, [address] [place] [address], [address], [place] tel:[phone] [facility] Left wrist painBody mass index (BMI) 30.0-30.9, adult 9 Sheridan Laws. [address] [place] [address], [id number] . tel: [phone] Family History Family Member Type Diagnosis Age At Onset Brother Problem (finding) Alive and well Payers Payer name Insurance type Covered republican ID Authoriza tijane(s) Cign[employer] Open Access Plus E2 [id number] Social History Type Description Quantity Date Captured [...]
== END 2025-02-10 10:13 | disposition home or self-care (01) ==
PROVIDERS: Emergency Provider Nurse Practitioner Family; PCP Family Medicine
DX: M54.12 Radiculopathy, cervical region (principal); Z87.891 Personal history of nicotine dependence; K21.9 Gastro-esophageal reflux disease without esophagitis; E66.9 Obesity, unspecified; Z68.30 Body mass index [BMI] 30.0-30.9, adult; Z85.46 Personal history of malignant neoplasm of prostate
CPT/HCPCS: 72040; 99213; G0463

== ENCOUNTER 2025-08-26 08:12 | Emergency (ER) | payer MEDICARE, SELFPAY ==
--- OUTSIDE RECORDS SUMMARY | 2019-09-17 07:00 | XMS_ITS | Continuity of Care Document ---
Author Organization [facility] Address [address] [place] [address] Phone Care Team Providers Care Woodyard Operator Name Role Phone Tee Nicholson PA-C Unavailable Unavailable Allergies, Adverse Reactions, Alerts Substance Reaction Status Criticality No Known Allergies Active No Inform ation Medications Medication Instructions Dosage Effective Dates (start - stop) Status Comments lisinopril 10 mg tablet take 1 tablet by oral route every day 10 MG - Active Tirosint 150 mcg capsule take 1 capsule by oral route every day 150 MCG - Active simvastatin 40 mg tablet take 1 tablet by oral route every day in the evening 40 MG - Active Procedures Procedure Date OFFICE/OUTPATIENT VISIT EST POSTOP FOLLOW-UP VISIT REPAIR FOREARM TENDON/MUSCLE OFFICE/OUTPATIENT VISIT EST OFFICE/OUTPATIENT VISIT NEW Advance Directives Directive Yes / No Effective Date File Name No Information Encounters Encounter Description Practice Location Reason(s) For Visit Diagnoses Date Provider Providers Copied on Encounter OFFICE/OUTPA TIENT VISIT EST [facility], [address] [address], [place], [address], [place] tel:[phone] [facility] Laceration of other specified muscles, fascia and tendons at wrist and hand level, left hand, subsequent encounter 9 Bharat Oliveira. [address], [place], [place], [id number] , [place]. tel: [phone] [facility], [address], [place], [address], [place] tel:[phone] [facility] Laceration of other specified muscles, fascia and tendons at wrist and hand level, left hand, subsequent encounter 9 Bharat Car[address]o [address], [place], [place], [id number] , [place]. tel: [phone] Referring Provider: Andrés Caruso, [address] [facility], [place], [address]. tel:[phone] [facility], [address] [place] [address], [place], [address], [place] tel:[phone] [facility] [address] Laceration of other specified muscles, fascia and tendons at wrist and hand level, left hand, subsequent encounterEncoun ter for preprocedural cardiovascular examinationLace ration of other flexor muscle, fascia and tendon at forearm level, left arm, initial encounter 9 Bharat Carball[address], [place], [place], [id number] , [place]. tel: [phone] OFFICE/OUTPA TIENT VISIT [facility] ([place], [place]) [facility], [address] [place] [address], [place], [address], [place] tel:[phone] [facility] Laceration of other specified muscles, fascia and tendons at wrist and hand level, left hand, subsequent encounter 9 Bharat Car[address], [place], [place], [id number] , [place]. tel: [phone] OFFICE/OUTPA TIENT VISIT [facility], [address] [place] [address], [address], [place] tel:[phone] [facility] Left wrist painBody mass index (BMI) 30.0-30.9, adult 9 Sheridan Laws. [address] [place] [address], [id number] . tel: [phone] Family History Family Member Type Diagnosis Age At Onset Brother Problem (finding) Alive and well Payers Payer name Insurance type Covered green party ID Authoriza tijane(s) [employer] Open Access Plus [id number] [id number] Social History Type Description Quantity Date Captured Comments Alcohol Use Details Unknown Caffeine Use Details Unknown Tobacco Use Status Ex-cigarette smoker 019 Smoking Status Former smoker Sex Male Chief Complaint And Reason For Visit No Information Reason For Referral Reason For Referral No Information Plan Of Treatment Date Type Action Status Referral Ordered: ELECTROCARDIOGRAM COMPLETE ordered Referral Ordered: RADEX WRST COMPL MINIMUM 3 VIEWS LT ordered Referral Ordered: MRI ANY JT UXTR C-MATRL LT wrist Appointment date/timeframe: 07/28/2019 ordered History Of Present Illness Encounter Date Complaint History Of Prese nt Illness No Information Functional Status Date Functional Assessmen t No Information Instructions Date Instruction Additional Infor mation Giving encouragement to exercise Related to Body mass index (BMI) 30.0-30.9, adult Assessments Type Assessment Date assessment Laceration of other specified muscles, fascia and tendons at wrist and hand level, left hand, subsequent encounter Patient Care Teams Name Effective Dates (start - stop) Status Members No Information
--- OUTSIDE RECORDS SUMMARY | 2025-08-26 08:17 | XMS_ITS | Clinical Summary ---
Author Organization [facility] Address [address] [place] [address] Phone Care Team Providers Care Civil Division Deputy Sheriff Name Role Phone Andrés Petit MD Primary Care Provider [phone] Allergies No known active allergies Medications levothyroxine [...] 12 Tablets 84 Tablet 11/04/2021 6:38 PM APARTMENT LEASING CONSULTANT 2 Active diazePAM (Valium) 5 mg tabletIndications: Cervical radiculopathy Take 1 Tablet (5 mg) by mouth every 6 hours as needed for Spasm. 60 Tablet 11/04/2021 6:38 PM APARTMENT LEASING CONSULTANT 2 Active docusate sodium (Colace) 100 mg capsule Take 1 Capsule (100 mg) by mouth 2 times daily as needed for Constipation . 30 Capsule 11/04/2021 6:38 PM APARTMENT LEASING CONSULTANT 2 Active Active Problems Problem Noted Date Diagnosed Date Carpal tunnel syndrome, bilateral 11/13/2022 Cubital tunnel syndrome of both upper extremitie s 11/13/2022 Social History Tobacco Use Types Packs/Day Years Used Date Smoking Tobacco: Unknown Sex and Gender Information Value Date Recorded Sex Assigned at Not on file Legal Sex Male 3:49 AM APARTMENT LEASING CONSULTANT Gender Identity Not on file Sexual Orientation Not on file Last Filed Vital Signs Vital Sign Reading Time Taken Comments Blood Pressure 134/83 11/04/2021 6:45 PM APARTMENT LEASING CONSULTANT Pulse 77 11/04/2021 6:45 PM APARTMENT LEASING CONSULTANT Temperature 36.6 C (97.9 F) 11/04/2021 6:11 PM APARTMENT LEASING CONSULTANT Respiratory Rate 20 11/04/2021 6:45 PM APARTMENT LEASING CONSULTANT Oxygen Saturation 93% 11/04/2021 6:45 PM APARTMENT LEASING CONSULTANT Inhaled Oxygen Concentration - - Weight 105.2 kg (232 lb) 11/04/2021 12:00 PM APARTMENT LEASING CONSULTANT Height 180.3 cm (5' 11) 11/04/2021 12:00 PM APARTMENT LEASING CONSULTANT Body Mass Index 32.36 11/04/2021 12:00 PM APARTMENT LEASING CONSULTANT Plan of Treatment Health Maintenance Due Date Last Done Comments DTAP/TDAP/TD VACCINES (1 - Tdap) 1974 COLORECTAL SCREENING 2000 Colorectal Cancer Screening 2000 FIT-DNA Q 3 years 2000 FIT/FOBT Q 1 year 2000 Flex Sig/CT Colonography Q 5 years 2000 PNEUMOCOCCAL VACCINE 50+ YEARS (1 of 1 - PCV) 05/16/20 05 ZOSTER VACCINE (1 of 2) 2005 INFLUENZA VACCINE (#1) 2025 RSV VACCINE (60+ or ) (1 - 1-dose 75+ series) 2030 Medical Devices Implanted Type Area Cross Tie Cutter Device Identifier Shelf Expiration Date Model / Serial / Lot Plate Zevo Ac 3lvl Ti 53mm [id number] - [id number] Implanted:Qty : 1 on 11/04/2021 by Kain Frost MD at [facility] N/A: Spine Cervical Anterior [employer] [id number] / / Description:Load No: [id number] Sterilized: 10/28/2021 MICKEY REQ#[id number] Pin Holding Zevo Plate [id number] - [id number] Implanted:Qty : 2 on 11/04/2021 by Kain Frost MD at [facility] Plate N/A: Spine Cervical Anterior [employer]ANE[employer] [id number] / / Description:Load No: [id number] Sterilized: 10/28/2021 Screw Zevo Va Sd 3.5x13mm [id number] - [id number] Implanted:Qty : 8 on 11/04/2021 by Kain Frost MD at [facility] Screw N/A: Spine Cervical Anterior [employer] [id number] / / Description:Load No: [id number] Sterilized: 10/28/2021 Allograft Crnrstn [id number] - [id number] Implanted:Qty : 1 on 11/04/2021 by Kain Frost MD at [facility] N/A: Spine Cervical Anterior [employer] 08/10/2024 [id number] / [id number] / [id number] Description: BR REQ#[id number] Allograft Crnrstn [id number] - [id number] Implanted:Qty : 1 on 11/04/2021 by Kain Frost MD at [facility] N/A: Spine Cervical Anterior [employer] 08/10/2024 [id number] / [id number] / [id number] Description: BR REQ#[id number] Allograft Crnrstn [id number] - [id number] Implanted:Qty : 1 on 11/04/2021 by Kain Frost MD at [facility] Tissue N/A: Spine Cervical Anterior [employer] 08/10/2024 [id number] / [id number] / [id number] Description: BR REQ#[id number] Explanted Type Area Cross Tie Cutter Device Identifier Shelf Expiration Date Model / Serial / Lot Hemostatic Surgiflo 8ml W/ Thrombin 2994 - Sna Explanted:Qty: 1 on 11/04/2021 by Kain Frost MD at [facility] Hemostatic N/A: Neck [employer] 03/14/2022 2994 / NA / [id number] Insurance MEDICARE PART A AND B [facility] [id number] RX [employer] RX Member Subscriber Plan / Payer (Ef fective 2021-Present) Name:Alan Kline Relation to Subscriber:Self Name:Alan Kline Payer ID:Not on file Group ID:[id number] Type:RX Medicare Part D Address: [place] Care Teams Civil Division Deputy Sheriff Relationship Specialty Start Date End Date Andrés Petit MD [address] [place] [address] PCP - General Family Practice 11/02/21
--- OUTSIDE RECORDS SUMMARY | 2025-08-26 08:17 | XMS_ITS | Patient Health Record ---
Author Organization [facility] Address [address] [place] [address] Care Team Providers Care Logistics Administrator Name Role Phone DR. Franklin Gama Unavailable [phone] Reason For Referral No Information Medications Medication SIG (Take, Route, Frequency, Duration) Notes Start Date End Date Status Levothyroxine Sodium 150 MCG Tablet 1 tablet on an empty stomach in the morning Orally Once a day Active Simvastatin 40 MG Tablet 1 tablet in the evening Orally Once a day Active B-12 500 MCG Tablet Sublingual 2 tablets under the tongue and allow to dissolve Sublingual Once a day Active Daily Vitamin - Tablet 1 tablet Orally Once a day *Reorder from Cumulux for eRx and Interaction Alerts* Active Lisinopril 10 MG Tablet 1 tablet Orally Once a day Active Social History Social History Additional Details Category Social Info Options Details Migrated Social History Social History: (Alcohol): Yes (Caffine): Yes (Illicit Drugs):No (Sexually Active):Yes (Smoking): status: Former Smoker stopped 2012 Section Notes: retired Problems Problem Type SNOMED Code ICD Code Onset Dates Problem Status W/U Status Risk Notes Problem Acute maxillary sinusitis (33803258) Acute maxillary sinusitis, unspecified (J01.00) Active confirmed Problem Postnasal drip (87928179) Postnasal drip (R09.82) Active confirmed Plan Of Treatment No Information Insurance Providers Payer Name Payer Address Payer Phone Subscriber Number Group Number Insured Name Patient Relationship to Insured Coverage Start Date Coverage End Date [employer] [address] [place], [place] [id number] KUSUM FRITZ Self - patient is the insured Medical (General) History Medical History History ICD Code high blood pressure high cholesterol UNDERACTIVE THYROID Surgical History Surgery Date(Month/Year) BACK/NECK SURGERY 2008 colonoscopy 2015
--- OUTSIDE RECORDS SUMMARY | 2025-08-26 08:17 | XMS_ITS | Encounter Summary ---
Author Organization [facility] Address [address] [place] [address] Care Team Providers Care Obiee Consultant Name Role Phone Andrés Petit MD Primary Care Provider [phone] Encounter Details Date Type Department Care Team [...] on file Legal Sex Male 3:49 AM WOOD HEEL FLAP RUBBER Gender Identity Not on file Sexual Orientation Not on file documented as of this encounter Plan of Treatment Not on file documented as of this encounter Visit Diagnoses Diagnosis Displacement of lumbar intervertebral disc without myelopathy- Primary documented in this encounter Care Teams Obiee Consultant Relationship Specialty Start Date End Date Andrés Petit MD [address] [place] [address] PCP - General Family Practice 11/02/21 documented as of this encounter
--- OUTSIDE RECORDS SUMMARY | 2025-08-26 08:17 | XMS_ITS | Clinical Summary ---
Author Organization [facility] Address [address] [place] [address] Care Team Providers Care Phone Operator Name Role Phone Andrés Petit MD Primary Care Provider [phone] Allergies No known active allergies Medications cyclobenzaprine [...] file Legal Sex Male 1:49 PM TRACK MECHANIC Gender Identity Not on file Sexual Orientation [...] kg (215 lb) 10/17/2023 9:16 AM TRACK MECHANIC Height 180.3 cm (5' 11) 10/17/2023 9:16 AM TRACK MECHANIC Body Mass Index 29.99 10/17/2023 9:16 AM TRACK MECHANIC Plan of Treatment Health Maintenance Due Date Last Done Comments Colon Cancer Screening-Colonoscopy 1955 Depression Screening 1955 Fall Risk Assessment 1955 Hepatitis C Screening 1955 DTaP/Tdap/Td Vaccine (1 - Tdap) 1966 Hepatitis B Screening 1973 Pneumococcal vaccine 65+ (1 of 1 - PCV) 2005 Zoster Vaccine (1 of 2) 2005 Abdominal Aortic Aneurysm (AAA) Screen 2020 Well Visit 65+ 2020 Covid-19 Vaccine (3 - season) 2025, 03/21/2022 Influenza Vaccine (#1) 2025 08/08/2022 Insurance [employer] MEDICARE [facility] MEDICARE [facility] [place] [phone] MEDICARE [facility] Care Teams Phone Operator Relationship Specialty Start Date End Date Andrés Petit MD [address] [address] PCP - General 07/31/19
[2025-08-26 08:19] VITALS: BP 149/86; PULSE 77; RESP 18; TEMP 35.9; O2SAT 96
--- NOTE | 2025-08-26 08:57 | ED.URI ---
HPI - URI/Sore Throat General Chief Complaint: Upper Respiratory Infection Stated Complaint: Sinus Infection Time Seen by Provider: 08/26/25 08:30 Source: patient and RN notes reviewed Mode of arrival: ambulatory Limitations: no limitations History of Present Illness HPI Narrative: 70-year-old male patient presents Express Care complaining of headaches, sinus pressure, congestion for approximately 1.5 weeks. Patient has any fevers, body aches, chills, nausea, vomiting, diarrhea, chest pain, difficulty breathing, cough, runny nose ear pain, sore throat, or any other symptoms. Patient has been trying Mucinex to help with symptoms are relief. Patient has also been taking Tylenol help with the headaches. Patient reports a history of hypertension. Related Data Home Medications ?Medication ?Instructions ?Recorded ?Confirmed ?Last Taken ?Type multivitamin,zl-nkfl-bfahshga 1 tablet PO DAILY 09/02/19 05/14/25 03/09/23 History (Complete Multivitamin tablet) cyanocobalamin (vitamin B-12) 500 500 mcg PO DAILY 05/06/21 05/14/25 03/09/23 History mcg tablet (Vitamin B-12) loratadine 10 mg tablet 10 mg PO DAILY PRN allergic 01/25/23 05/14/25 Unknown History symptoms leuprolide acetate (6 month) 45 mg 45 mg subcut [id number] 10/02/24 05/14/25 Unknown History (6 month) subcutaneous syringe (Eligard) Allergies Allergy/AdvReac Type Severity Reaction Status Date / Time No Known Allergies Allergy Verified 08/26/25 08:19 Review of Systems Review of Systems: CONSTITUTIONAL: Denies fever, body aches, chills, or sweats. EYES: Denies visual changes, redness, or discharge. ENT: Denies rhinorrhea, sore throat, or otalgia. Positive for congestion and sinus pressure. CARDIOVASCULAR: Denies chest pain, palpitations, or edema. RESPIRATORY: Denies cough or dyspnea. GASTROINTESTINAL: Denies abdominal pain, nausea, vomiting, or diarrhea. GENITOURINARY: Denies dysuria or hematuria. SKIN: Denies rash or itching. MUSCULOSKELETAL: Denies back pain, joint pain, or myalgia. NEUROLOGIC: Denies numbness, or weakness. Positive for headaches. PSYCHIATRIC: Denies anxiety or depression. All other systems reviewed are negative, except as documented in HPI. PMFSH Past Medical History Medical History Elevated PSA, less than 10 ng/ml (08/02/23) PSA elevated at 5.98 On 08/02/2023, increased from 3.45. PSA 5.6 with 16% free PSA on 09/10/2023. 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 Cubital tunnel syndrome on EMG and nerve conduction study on the right on 11/13/2022. Carpal tunnel syndrome, bilateral Treated surgically. Bilateral carpal tunnel syndrome on EMG and nerve conduction study 11/13/2022 moderate on the right and mild on the left. Prostate cancer (~08/02/23) prostate biopsy with 07/29 biopsies positive on 11/01/2023. MRI and PET scan with activity and 2 nodules and in the seminal vesicle Chronic thoracic back pain BMI 30.0-30.9,adult Acute bronchitis (08/16/22) COVID negative, influenza a and B negative Right otitis media with effusion Acute non-recurrent maxillary sinusitis BMI 29.0-29.9,adult Overweight (BMI 25.0-29.9) Hip pain, bilateral X-ray of the hips and pelvis on 07/20/2022 reveals mild osteoarthritis of the hips with severe lumbar spondylosis. Obesity (BMI 30.0-34.9) Gastro-esophageal reflux disease without esophagitis Impacted cerumen of both ears Polyp of colon (05/18/21) 2 benign-appearing polyps in the sigmoid colon with Dr. Fuentes on 05/18/2021 with recheck in 5 years. Tubular adenoma BMI 31.0-31.9,adult Chronic low back pain with left-sided sciatica Abnormal fasting glucose Fasting glucose 101 with hemoglobin A1c 5.4 on 07/12/2022. fasting glucose 89 with hemoglobin A1c 5.4 on 08/02/2023. Glucose 94 with hemoglobin A1c 5.5 on 09/24/2024. Fasting glucose 91 with hemoglobin A1c 5.7 and GFR 102 on 04/28/2025. Dupuytren's contracture of both hands Trigger finger of right hand Family History Family History Mother Carcinoma of colon Patient's mother is , Onset Age: 84 Father Patient's father is , Onset Age: 93 Family history of pancreatic cancer Other Diabetes mellitus Family history of allergic disorder Social History Social History Smoking packs per day: 2 Smoking cigarettes per day: 40.0 Years smoked: 20 Smoking pack-years: 40.00 Tobacco type: cigarettes Second hand tobacco smoke exposure: No Smoking end date: 10/15/83 Alcohol intake: current Drinks per week: 18 Alcohol use details: BEER/WINE Substance use: never Substance use type: does not use Lack of Transportation: No Lack of Food: Never True Current Housing: I Have Housing Concerned About Future Housing: No Difficulty Paying Gas/Electric Bills: No Difficulty Paying for Meds: No Currently Unemployed: No Education: High School Diploma/GED Difficulty w/ Childcare or Family Care: No Living arrangements: with family Spiritual care concerns: No Comments At the time of my signature, I reviewed and agree with the nursing past medical, surgical, social, and family history. There is no relevant family history pertinent to the patient complaint. Exam Narrative: GENERAL: This is a well-nourished, well-developed adult, in no apparent distress. They are non ill-appearing, nontoxic appearing. HEAD: normocephalic, atraumatic. EYES: Sclera clear/white. Conjunctiva normal. Vision is grossly intact. Extraocular movements intact EARS: External ears normal, auditory canals clear and without drainage, TMs normal without perforation. Hearing grossly intact. NOSE: External nose normal with no obvious nasal discharge, nasal turbinates erythematous with exudate, no rhinorrhea. THROAT: Mucous membranes moist, posterior pharynx without erythema or swelling. Uvula midline. Cobblestone appearing with postnasal drip present. NECK: Neck supple, non-tender without lymphadenopathy, masses or thyromegaly. CARDIOVASCULAR: Regular rate and rhythm without murmurs, gallops, or rubs. RESPIRATORY: Clear to auscultation. Breath sounds equal bilaterally. No wheezes, rales, or rhonchi. SKIN: warm, Dry, intact with no suspicious lesions or rash, good texture and turgor. NEURO: awake, alert, and oriented to person, place and time. There were no obvious focal neurologic abnormalities. EXTREMITIES: No joint tenderness, effusion, or edema noted. BACK: Nontender without deformity. No CVA tenderness. Course Course Emergency Course: Portions of this record may have been created with voice recognition software Level of Care: Express Care Visit Vital Signs Vital signs: Vital Signs Temperature 96.7 F L 08/26/25 08:19 Pulse Rate 77 08/26/25 08:19 Respiratory Rate 18 08/26/25 08:19 Blood Pressure 149/86 H 08/26/25 08:19 Pulse Oximetry 96 08/26/25 08:19 Oxygen Delivery Room Air 08/26/25 08:19 Temperature 96.7 F L 08/26/25 08:19 Pulse Rate 77 08/26/25 08:19 Respiratory Rate 18 08/26/25 08:19 Blood Pressure 149/86 H 08/26/25 08:19 Pulse Oximetry 96 08/26/25 08:19 Oxygen Delivery Room Air 08/26/25 08:19 Reviewed MDM - URI/Sore Throat MDM Narrative Medical decision making narrative: Given patient's length of symptoms likely has developed a bacterial sinusitis, will treat him with Augmentin. Discussed physical exam findings. Advised supportive measures and signs/symptoms to go to the ER. Pt is appropriate for outpt treatment and f/u. Differential Diagnosis Differential diagnosis: Likely upper respiratory infection, sinusitis and viral infection Critical Care Time Critical Care Time Critical Care Time: No Discharge Plan Discharge Clinical Impression: Sinusitis Qualifiers: Sinusitis location: unspecified location Chronicity: acute Recurrence: non-recurrent Qualified Code(s): J01.90 - Acute sinusitis, unspecified Patient Disposition: Home Condition: Stable Instructions: Antibiotic Form, Sinusitis (ED) Additional Instructions: Take the antibiotics as directed and complete the course even if you start to feel better. You may use a Neti pot saline rinse 3 times a day with lukewarm distilled water You may take ibuprofen 600 mg to 800 mg every 6-8 hours. Do not exceed more than 800 mg of ibuprofen per dose. Do not exceed more than 3200 mg ibuprofen in a day. You may take up to 1000 mg Tylenol every 6-8 hours. Do not exceed 1000 mg per dose, do exceed more than 4000 mg of Tylenol in a day. Use a humidifier or vaporizer at night. Drink plenty of water. 8-10 glasses per day. Use flonase 2 times per day for 5 days then as needed Take mucinex 2 times per day and be sure to take with 8oz of water. Follow up with Primary provider in 3-5 days Please go to the ER if he develops any difficulty breathing, worsening symptoms, or any other concerns Patient Language: Jordanian Prescriptions: New amoxicillin-pot clavulanate 875-125 mg tablet 1 tablet PO Q12H 7 Days Qty: 14 0RF No Action loratadine 10 mg tablet 10 mg PO DAILY PRN (Reason: allergic symptoms) Eligard (6 month) 45 mg syringe 45 mg subcut [id number] cyanocobalamin (vitamin B-12) [Vitamin B-12] 500 mcg Tablet 500 mcg PO DAILY Complete Multivitamin Tablet 1 tablet PO DAILY simvastatin 40 mg tablet 40 mg PO DAILY Qty: 90 3RF celecoxib [Celebrex] 200 mg capsule 200 mg PO BID PRN (Reason: pain) Qty: 60 11RF levothyroxine [Levo-T] 137 mcg tablet 137 mcg PO . q.a.m. Qty: 90 3RF irbesartan 150 mg tablet 150 mg PO DAILY Qty: 90 3RF Rx Instructions: switch from lisinopril Follow-up/Referrals: Andrés Petit MD [Primary Care Provider, Family Practice] Time of Disposition: 08:45
== END 2025-08-26 08:49 | disposition home or self-care (01) ==
PROVIDERS: PCP Family Medicine
DX: J01.90 Acute sinusitis, unspecified (principal); F17.210 Nicotine dependence, cigarettes, uncomplicated
CPT/HCPCS: 99213; G0463